=== PATIENT | female | born 1980 | race Caucasian/White ===

== ENCOUNTER 2020-06-17 22:30 | Inpatient (IN) | payer OTHER ==
[2020-06-17] MEDS: ELECTROLYTE-148 SOLN 1,000 ML IV SCH (23:00)
[2020-06-17] MEDS ORDERED: OXYTOCIN 30 UNITS in 0.9% NS 30 UNIT/500 ML INFUS.BAG IVPB SCH (23:15)
[2020-06-17] MEDS ORDERED: DEXTROSE 5%-LACTATED RINGERS 1,000 ML IV SCH (23:15)
[2020-06-18 00:01] LABS: BASO % 0.4 % (0-2.0); HEMATOCRIT 34.9 % (32.4-45.2); HEMOGLOBIN 12.1 GM/dL (10.7-15.3); LYMPH % 16.5 % (8-40); MCH 33.1 pg (25.7-33.7); MCHC 34.8 g/dl (32.0-36.0); MEAN CELL VOLUME 95.3 fl (80-96); MEAN PLT VOLUME 10.1 fl (7.5-11.1); MONO % 7.2 % (3.8-10.2); NEUT % 74.9 % (42.8-82.8); PLATELET COUNT 206 K/MM3 (134-434); RBC 3.66 M/mm3 (3.60-5.2); RDW 12.9 % (11.6-15.6); WHITE BLOOD COUNT 10.7 K/mm3 (4.0-10.0)
[2020-06-18 00:33] LABS: INR 0.91 (0.83-1.09)
[2020-06-18 00:42] VITALS: BMI 23.8
[2020-06-18 00:51] LABS: CALCIUM 8.6 mg/dL (8.5-10.1)
[2020-06-18 00:52] LABS: BLOOD UREA NITROGEN 12.2 mg/dL (7-18)
[2020-06-18 00:56] LABS: CREATININE 0.6 mg/dL (0.55-1.3)
[2020-06-18] MEDS ORDERED: PROMETHAZINE HCL 25 MG/1 ML VIAL ONE (01:43)
[2020-06-18] MEDS ORDERED: BUTORPHANOL TARTRATE 2 MG/ML VIAL ONE (01:43)
[2020-06-18] MEDS ORDERED: PROMETHAZINE HCL 25 MG/1 ML VIAL IVPB STA (02:15)
[2020-06-18] MEDS ORDERED: BUTORPHANOL TARTRATE 2 MG/ML VIAL IVPB STA (02:15)
[2020-06-18] MEDS ORDERED: PCA PUMP NR ONE ×2 (04:10→08:28)
[2020-06-18] MEDS ORDERED: FENTANYL/BUPIVACAINE/NS/PF - PCEA - 50 ML DISP.SYRIN EP ONE (04:10)
[2020-06-18] MEDS ORDERED: OXYTOCIN 30 UNITS in 0.9% NS 30 UNIT/500 ML INFUS.BAG IVPB ONE (04:10)
[2020-06-18] MEDS: ELECTROLYTE-148 SOLN 1,000 ML IV SCH (04:20)
[2020-06-18] MEDS ORDERED: BUPIVACAINE HCL/PF 0.25% (2.5MG/ML) 10 ML VIAL ONE (04:28)
[2020-06-18] MEDS ORDERED: NALOXONE HCL 0.4 MG/ML VIAL IVPUSH PRN (04:56)
[2020-06-18] MEDS ORDERED: FENTANYL/BUPIVACAINE/NS/PF - PCEA - 50 ML DISP.SYRIN EP SCH (05:00)
[2020-06-18] MEDS ORDERED: OXYTOCIN 20 UNITS in 0.9% NS 20 UNIT/1,000 ML INFUS.BAG IV ONE ×2 (05:38→10:34)
[2020-06-18] MEDS ORDERED: WITCH HAZEL 50% (TUCKS) 40 PAD/JAR PAD TP PRN (08:25)
[2020-06-18] MEDS ORDERED: BENZOCAINE 20% 57 GM BOTTLE TP PRN (08:25)
[2020-06-18] MEDS ORDERED: BISACODYL 10 MG SUPP.RECT RC PRN (08:25)
[2020-06-18] MEDS ORDERED: BENZOCAINE 28 GM HEMORRHOIDAL OINTMENT TP PRN (08:25)
[2020-06-18] MEDS ORDERED: METHYLERGONOVINE MALEATE 0.2 MG/1 ML AMP IM PRN (08:25)
[2020-06-18] MEDS ORDERED: OXYTOCIN 20 UNITS in 0.9% NS 20 UNIT/1,000 ML INFUS.BAG IV SCH (08:30)
[2020-06-18] MEDS ORDERED: ACETAMINOPHEN 325 MG TABLET (FP) ONE (09:32)
[2020-06-18] MEDS ORDERED: IBUPROFEN 600 MG TABLET (FP) PO ONE (09:32)
[2020-06-18] MEDS: IBUPROFEN 600 MG TABLET (FP) PO PRN (09:42)
[2020-06-18] MEDS: ACETAMINOPHEN 325 MG TABLET (FP) PO PRN (09:43)
[2020-06-18] MEDS: PRENATAL VITAMINS W/ FOLIC ACID TABLET (FP) PO SCH (13:38)
[2020-06-19 08:51] LABS: BASO % 0.5 % (0-2.0); EOS % 1.2 % (0-4.5); HEMATOCRIT 33.6 % (32.4-45.2); HEMOGLOBIN 11.6 GM/dL (10.7-15.3); LYMPH % 17.6 % (8-40); MCH 33.4 pg (25.7-33.7); MCHC 34.5 g/dl (32.0-36.0); MEAN CELL VOLUME 96.8 fl (80-96); MEAN PLT VOLUME 9.8 fl (7.5-11.1); MONO % 5.3 % (3.8-10.2); NEUT % 75.4 % (42.8-82.8); PLATELET COUNT 172 K/MM3 (134-434); RBC 3.47 M/mm3 (3.60-5.2); RDW 13.5 % (11.6-15.6); WHITE BLOOD COUNT 12.5 K/mm3 (4.0-10.0)
[2020-06-19] MEDS: IBUPROFEN 600 MG TABLET (FP) PO PRN (10:25)
[2020-06-19] MEDS: PRENATAL VITAMINS W/ FOLIC ACID TABLET (FP) PO SCH (10:25)
[2020-06-19] MEDS: ACETAMINOPHEN 325 MG TABLET (FP) PO PRN (10:26)
[2020-06-19] MEDS ORDERED: SENNOSIDES/DOCUSATE COMBO (SENNA PLUS) TABLET (UD) PO PRN (22:00)
[2020-06-20 09:44] VITALS: BP 103/66; PULSE 85; TEMP 98.1
[2020-06-20] MEDS: PRENATAL VITAMINS W/ FOLIC ACID TABLET (FP) PO SCH (09:49)
== END 2020-06-20 12:50 | disposition home or self-care (01) | DRG 807 ==
LOC: JDEL 22:30 → JLDR 22:55 → J3W 06-18 10:50
PROVIDERS: ADMIT Obstetrics & Gynecology; ATTEND Obstetrics & Gynecology
PROC: 10E0XZZ Delivery of Products of Conception, External Approach (ICD-10-PCS; principal; 2020-06-18)
PROC: 0W8NXZZ Division of Female Perineum, External Approach (ICD-10-PCS; 2020-06-18)
DX: O42.02 Full-term premature rupture of membranes, onset of labor within 24 hours of rupture (principal); Z37.0 Single live birth; O24.420 Gestational diabetes mellitus in childbirth, diet controlled; O70.0 First degree perineal laceration during delivery; Z3A.40 40 weeks gestation of pregnancy
CPT/HCPCS: 36415; 59409; 80048; 82962; 85025; 85610; 85730; 86780; 86850; 86900; 86901